=== PATIENT | female | born 1975 | race Hispanic/Latino ===

== ENCOUNTER → 2022-05-20 | Outpatient (CLI) | payer MEDICARE ==
[~2022-05-20] VITALS: Ht 152.4 cm; Wt 54.4 kg
[~2022-05-20] MED LIST: ACET-66 PO; AMIO200T68 PO; ASPI-1197 PO; ATOR40TA71 PO; CA/D1TAB7 PO; CARB200T PO; DIGO0.12 PO; ESOM40CA PO; Flecainide Acetate PO; LAMO100T56 PO; LATA2.5D14 OU; LEVE-43 PO; LORA10CA PO; LORA10TA60 PO; LUBI24CA2 PO; MIDO2.5T PO; NORE-74 PO; ONDA-104 PO; RISP0.5T66 PO; RIVA20TA PO; SERT-438 PO; TRAZ-185 PO; TYL3B PO; VERA240T95 PO; [UNRECOGNIZED DRUG - OTHER] PO; [UNRECOGNIZED DRUG - OTHER] PO; calcium,mag,zinc PO; centrum PO; sodium chloride PO; vitamin d3 PO
[2022-05-20 11:13] LABS: BASOPHILS % (AUTO) 0.5 % (0.0-5.0); EOSINOPHILS % (AUTO) 0.3 % (0.0-8.0); HEMATOCRIT 33.6 % (36-48); LYMPHOCYTES % (AUTO) 17.9 % (21.0-51.0); MEAN CORPUSCULAR HEMOGLOBIN 29.1 pg (27.0-33.0); MEAN CORPUSCULAR HGB CONC 31.8 g/dL (32.0-36.0); MEAN CORPUSCULAR VOLUME 91.3 fL (79-99); NEUTROPHILS % (AUTO) 74.9 % (40.0-77.0); PLATELET COUNT (AUTO) 244 K/uL (130-400); RED BLOOD CELL COUNT(AUTO) 3.68 MIL/uL (4.00-5.50); RED CELL DISTRIBUTION WIDTH 13.2 % (11.0-15.5); WHITE BLOOD COUNT (AUTO) 7.9 K/uL (4.8-10.8)
[2022-05-20 11:21] VITALS: BP 99/50
[2022-05-20 11:22] LABS: CREATININE 0.7 mg/dL (0.5-1.5); POTASSIUM 3.8 mmol/L (3.5-5.1)
[2022-05-20 11:43] LABS: PROTHROMBIN TIME 10.9 SEC (9.6-11.6)
[2022-05-20 11:44] LABS: PARTIAL THROMBOPLASTIN TIME 34.1 SEC (26.3-35.5)
== END | disposition home or self-care (01) ==
LOC: DAH 10:00 → EDSTATUS 10:00
PROVIDERS: ATTEND Internal Medicine Cardiovascular Disease
DX: I48.21 Permanent atrial fibrillation (principal); I42.0 Dilated cardiomyopathy; Z79.01 Long term (current) use of anticoagulants; Z79.899 Other long term (current) drug therapy; Z88.8 Allergy status to other drugs, medicaments and biological substances; Z53.8 Procedure and treatment not carried out for other reasons
CPT/HCPCS: 36415; 80048; 84703; 85025; 85610; 85730; 93005

== ENCOUNTER 2022-09-04 06:02 | Observation (INO) | payer MEDICARE ==
[2022-09-02 12:22] LABS: BASOPHILS % (AUTO) 0.5 % (0.0-5.0); EOSINOPHILS % (AUTO) 0.5 % (0.0-8.0); HEMATOCRIT 35.1 % (36-48); LYMPHOCYTES % (AUTO) 16.9 % (21.0-51.0); MEAN CORPUSCULAR HEMOGLOBIN 27.4 pg (27.0-33.0); MEAN CORPUSCULAR HGB CONC 30.8 g/dL (32.0-36.0); MEAN CORPUSCULAR VOLUME 89.1 fL (79-99); MONOCYTES % (AUTO) 6.5 % (3.0-13.0); NEUTROPHILS % (AUTO) 75.2 % (40.0-77.0); PLATELET COUNT (AUTO) 257 K/uL (130-400); RED BLOOD CELL COUNT(AUTO) 3.94 MIL/uL (4.00-5.50); RED CELL DISTRIBUTION WIDTH 13.9 % (11.0-15.5); WHITE BLOOD COUNT (AUTO) 7.3 K/uL (4.8-10.8)
[2022-09-02 12:27] VITALS: BP 100/39; PULSE 72; RESP 16
[2022-09-02 12:36] LABS: INR 0.93 (0.85-1.15); PROTHROMBIN TIME 10.4 SEC (9.6-11.6)
[2022-09-02 12:37] LABS: PARTIAL THROMBOPLASTIN TIME 27.4 SEC (26.3-35.5)
[2022-09-02 12:40] LABS: CREATININE 0.7 mg/dL (0.5-1.5); POTASSIUM 4.2 mmol/L (3.5-5.1)
[2022-09-04] VITALS (25 sets, daily range): BP systolic 90–118; BP diastolic 38–80; PULSE 69–143; RESP 14–24; O2SAT 95–97
[~2022-09-04] VITALS: Ht 157.5 cm; Wt 52.1 kg
[~2022-09-04 06:02] MED LIST changes: +ARIPIPRAZOLE PO; -ASPI-1197 PO; -ATOR40TA71 PO; -CARB200T PO; +DICY-20 PO; -DIGO0.12 PO; -ESOM40CA PO; -Flecainide Acetate PO; +HYDR-3421 PO; -LAMO100T56 PO; -LATA2.5D14 OU; -LORA10CA PO; -LUBI24CA2 PO; -ONDA-104 PO; +POLY17PO4 PO; +PROBIOTIC PO; -RISP0.5T66 PO; +SENN-307 PO; -SERT-438 PO; +SERT-439 PO; -TYL3B PO; -VERA240T95 PO; -[UNRECOGNIZED DRUG - OTHER] PO; -[UNRECOGNIZED DRUG - OTHER] PO; -calcium,mag,zinc PO; -centrum PO
[2022-09-04] MEDS ORDERED: 0.9%NACL 1000ML 1,000 ML IV ONE (06:32)
[2022-09-04] MEDS ORDERED: LIDOCAINE PF 100MG/5ML (2%) SYRINGE 5ML ONE (07:04)
[2022-09-04] MEDS ORDERED: ROCURONIUM 10MG/1ML SYR 10 MG/ML ML ONE ×2 (07:04)
[2022-09-04] MEDS ORDERED: ONDANSETRON 4MG INJ ONE (07:04)
[2022-09-04] MEDS ORDERED: MIDAZOLAM HCL 1 MG/ML 2ML VIAL ONE (07:04)
[2022-09-04] MEDS ORDERED: DEXAMETHASONE SOD PHOSPHATE 10MG/ML 1ML VIAL ONE (07:04)
[2022-09-04] MEDS ORDERED: SUCCINYLCHOLINE 200MG/10ML SYR ONE (07:04)
[2022-09-04] MEDS ORDERED: PROPOFOL 10 MG/ML 20ML VIAL IV ONE (07:04)
[2022-09-04] MEDS ORDERED: FENTANYL CITRATE PF 50 MCG/1 ML 2ML VIAL ONE ×2 (07:05)
[2022-09-04] MEDS ORDERED: PHENYLEPHRINE HCL 10 MG/ML 1ML VIAL IV ONE (07:10)
[2022-09-04] MEDS ORDERED: EPHEDRINE SULFATE 50 MG/ML AMPULE ONE (07:10)
[2022-09-04] MEDS ORDERED: KETAMINE 50MG/ML SYRINGE 50 MG/ML DISP.SYRIN ONE (07:12)
[2022-09-04] MEDS ORDERED: SUGAMMADEX SODIUM 200 MG/2 ML VIAL IV ONE (07:14)
[2022-09-04] MEDS ORDERED: IOHEXOL-350 50ML VIAL IV ONE ×2 (08:06→08:51)
[2022-09-04] MEDS ORDERED: BUPIVACAINE/PF 0.25% 10ML VIAL IJ ONE (08:06)
[2022-09-04] MEDS ORDERED: VANCOMYCIN 1G/250ML KIT 500 ML IV ONE (08:06)
[2022-09-04] MEDS ORDERED: LIDOCAINE HCL 1% MDV 50ML VIAL ONE (08:06)
[2022-09-04] MEDS ORDERED: ISOPROTERENOL HCL 0.2 MG/ML AMP/VIAL/BAG ONE (08:58)
[2022-09-04] MEDS ORDERED: BACITRACIN 1 EACH PACKET TP ONE (09:58)
[2022-09-04] MEDS ORDERED: HEPARIN 1,000 UNIT VIAL ONE (10:39)
[2022-09-04] MEDS ORDERED: METOPROLOL TARTRATE 1 MG/ML 5ML VIAL IV ONE (12:08)
[2022-09-04] MEDS ORDERED: HYDROXYZINE 25 MG TABLET PO PRN (12:30)
[2022-09-04] MEDS ORDERED: PROPRANOLOL HCL 20 MG TAB PO PRN (12:30)
[2022-09-04] MEDS ORDERED: ACETAMINOPHEN 500 MG TABLET PO PRN (12:30)
[2022-09-04] MEDS ORDERED: NON-FORMULARY MEDICATION 1 EACH (Dicyclomine HCl 10 MG) PO PRN (12:30)
[2022-09-04] MEDS ORDERED: MORPHINE 2 MG SYG ONE (12:55)
[2022-09-04] MEDS ORDERED: DICYCLOMINE HCL 20 MG TAB PO PRN ×2 (13:00)
[2022-09-04] MEDS ORDERED: SENNOSIDES PO PRN (13:30)
[2022-09-04] MEDS ORDERED: DOCUSATE SODIUM PO PRN (13:30)
[2022-09-04] MEDS ORDERED: MIDODRINE HCL 2.5 MG PO SCH (14:00)
[2022-09-04] MEDS: MIDODRINE HCL 5 MG TABLET PO SCH ×2 (16:10→20:55)
[2022-09-04] MEDS: ACETAMINOPHEN WITH CODEINE 1 TAB TAB PO PRN ×2 (16:10→20:56)
[2022-09-04] MEDS: LEVETIRACETAM 500 MG TABLET PO SCH (20:55)
[2022-09-04] MEDS ORDERED: SERTRALINE HCL 50 MG TABLET PO SCH (21:00)
[2022-09-04] MEDS ORDERED: TRAZODONE HCL 50 MG TAB PO SCH (21:00)
[2022-09-04] MEDS ORDERED: LATA2.5D14 OU (21:02)
[2022-09-05] VITALS (9 sets, daily range): BP systolic 99–144; BP diastolic 40–74; PULSE 64–130; RESP 18–21; O2SAT 99
[2022-09-05] MEDS: ACETAMINOPHEN WITH CODEINE 1 TAB TAB PO PRN ×3 (03:09→08:39)
[2022-09-05] MEDS: LEVETIRACETAM 500 MG TABLET PO SCH (08:30)
[2022-09-05] MEDS: MIDODRINE HCL 5 MG TABLET PO SCH ×2 (08:38→13:25)
[2022-09-05] MEDS: POLYETHYLENE GLYCOL 3350 17 GM POWD.PACK PO SCH ×2 (08:38→08:41)
[2022-09-05] MEDS ORDERED: LORATADINE 10 MG TABLET PO SCH (09:00)
[2022-09-05] MEDS ORDERED: CALTRATE PO SCH (09:00)
[2022-09-05] MEDS ORDERED: [UNRECOGNIZED DRUG - OTHER] PO SCH (09:00)
[2022-09-05] MEDS ORDERED: NORETH A ET ESTRA PO SCH (09:00)
[2022-09-05] MEDS ORDERED: [UNRECOGNIZED DRUG - OTHER] PO SCH (09:00)
[2022-09-05] MEDS ORDERED: ARIPIPRAZOLE 5 MG TABLET PO SCH (09:00)
[2022-09-05] MEDS ORDERED: FE FUMARATE PO SCH (09:00)
[2022-09-05] MEDS ORDERED: PROP10TA10 PO (12:43)
[2022-09-05] MEDS ORDERED: AMIO200T68 PO (12:43)
[2022-09-05] MEDS ORDERED: TRAM50TA4 PO (12:44)
[2022-09-05] MEDS ORDERED: PROPRANOLOL HCL 20 MG TAB PO SCH (13:30)
== END 2022-09-05 17:45 | disposition home or self-care (01) ==
LOC: DAH 06:02 → DAHIP 06:03 → 2AH 13:05
PROVIDERS: ADMIT Internal Medicine Cardiovascular Disease; ATTEND Internal Medicine Cardiovascular Disease
DX: I42.0 Dilated cardiomyopathy (principal); Z20.822 Contact with and (suspected) exposure to COVID-19; I44.2 Atrioventricular block, complete; I48.21 Permanent atrial fibrillation; R00.1 Bradycardia, unspecified; Z79.899 Other long term (current) drug therapy; Z98.890 Other specified postprocedural states
CPT/HCPCS: 80048; 85025; 85610; 85730; 87426; 36415; 93005 ×2; 33225; 33233; 93650; 33207; 96374; 71045; C1769; C1894; C1785; C1900; A4649 ×2; C1732; G0378 ×30; J3010 ×2; J3490 ×6; J0330; J1100; J2270; J7030; J2001; J2250; J2704; J2405; J3370; J1644 ×2; J2371; Q9967 ×2; A4215; A4223; A4222; A4221; A4663; 33229; 93620; 93623; 96361